=== PATIENT | female | born 1990 | race Two or more races ===

== ENCOUNTER 2024-10-13 18:32 | Inpatient (IN) | payer OTHER ==
[~2024-10-13] VITALS: Ht 154.9 cm; Wt 66.2 kg
[2024-10-13] MEDS ORDERED: PRENATAL + DHA1 EAC1 PO (19:00)
[2024-10-13 20:49] LABS: HEMATOCRIT 37.3 % (36.0-45.00); HEMOGLOBIN 12.4 g/dL (12.0-15.00); MEAN CELL VOLUME 84.5 fL (80.00-100.00); MEAN CORPUSCULAR HEMOGLOBIN 28.1 pg (27.00-32.0); MEAN CORPUSCULAR HGB CONC 33.3 g/dl (32.0-36.0); PLATELET COUNT 271 K/uL (150-450); RED BLOOD COUNT 4.42 M/uL (4.00-6.00); RED CELL DISTRIBUTION WIDTH 14.3 % (11.5-14.5)
[2024-10-13 21:41] LABS: ALBUMIN 3.7 gm/dL (3.4-5.0); BILIRUBIN TOTAL 0.3 mg/dL (0.3-1.2); CALCIUM 8.7 mg/dL (8.5-10.1); CREATININE SERUM 0.55 mg/dL (0.55-1.02); GFR 125.06; GLOBULINA 3.7 G/DL (2.4-3.5); POTASSIUM 3.84 mEq/L (3.5-5.1); TOTAL PROTEIN 7.4 gm/dL (6.4-8.2)
[2024-10-13] MEDS ORDERED: KETOROLAC TROMETHAMINE 30 MG VIAL IV ONE (22:45)
[2024-10-13] MEDS ORDERED: CIPROFLOXACIN IN 5 % DEXTROSE 400 MG/200 ML PIGGYBAG IV ONE ×2 (22:45→23:54)
[2024-10-13] MEDS ORDERED: 0.9 % SODIUM CHLORIDE 1,000 ML IV SCH (22:45)
[2024-10-13] MEDS ORDERED: KETOROLAC TROMETHAMINE 30 MG VIAL ONE (23:54)
[2024-10-14] VITALS: BP 123/79; O2SAT 99
[2024-10-14 01:03] LABS: COVID-19 AG NEGATIVE (NEGATIVE)
[2024-10-14 01:04] LABS: PARTIAL THROMBOPLASTIN TIME 28.7 SECONDS (22.0-34.0); PROTHROMBIN TIME 10.9 SECONDS (9.0-11.5)
[2024-10-14 03:08] VITALS: BP 114/65
[2024-10-14 04:02] LABS: PH,URINE 5.5 (5.0-8.0); URINE APPEARANCE Clear; URINE BILIRRUBIN Negative (NEGATIVE); URINE BLOOD Large; URINE COLOR Yellow; URINE GLUCOSE Negative (NEGATIVE); URINE KETONE Trace (NEGATIVE); URINE LEUKOCYTE Trace; URINE NITRATE Negative; URINE PROTEIN Trace (NEGATIVE)
[2024-10-14 04:06] LABS: URINE BACTERIA 2855.5 uL (0.0-1933); URINE EPITHELIAL CELLS 17.8 uL (0.0-38.8); URINE RBC 1369.5 uL (0.0-20.8); URINE WBC 17.5 uL (0.0-23.2)
[2024-10-14 04:26] LABS: URINE CAST 0.14 uL (0.0-1.40)
[2024-10-14] MEDS ORDERED: CLINDAMYCIN PHOSPHATE 150 MG/ML (900mg) IV SCH (06:15)
[2024-10-14] MEDS ORDERED: CLINDAMYCIN PHOSPHATE 150 MG/ML (900mg) ONE (07:50)
[2024-10-14 08:58] VITALS: BP 104/65
[2024-10-14] MEDS ORDERED: OXYTOCIN 10 UNITS/ML VIAL ONE (11:35)
[2024-10-14] MEDS ORDERED: OxyCODONE HCL/APAP UD (PERCOCET) PO PRN (12:00)
[2024-10-14] MEDS ORDERED: ACETAMINOPHEN 500 MG GEL..CAP PO PRN (12:00)
[2024-10-14 13:40] VITALS: BP 100/66
[2024-10-14 15:28] VITALS: O2SAT 100
[2024-10-14 15:39] VITALS: BP 96/63
[2024-10-14] MEDS ORDERED: OxyCODONE HCL 5 MG TABLET (ROXICODONE) PO PRN (19:45)
[2024-10-15] VITALS: BP 90/60
[2024-10-15 02:05] LABS: HEMATOCRIT 33.1 % (36.0-45.00); HEMOGLOBIN 11.1 g/dL (12.0-15.00); MEAN CELL VOLUME 85.3 fL (80.00-100.00); MEAN CORPUSCULAR HEMOGLOBIN 28.7 pg (27.00-32.0); MEAN CORPUSCULAR HGB CONC 33.7 g/dl (32.0-36.0); PLATELET COUNT 256 K/uL (150-450); RED BLOOD COUNT 3.88 M/uL (4.00-6.00); RED CELL DISTRIBUTION WIDTH 13.7 % (11.5-14.5)
[2024-10-15 07:44] VITALS: BP 94/68
[2024-10-15] MEDS ORDERED: IBUPROFEN800 MG PO (08:41)
== END 2024-10-15 10:02 | disposition home or self-care (01) | DRG 770 ==
LOC: ER 18:32 → OB/GYN 10-14 01:53
PROVIDERS: General Practice; ADMIT Specialist; ATTEND Specialist
PROC: 10D17ZZ Extraction of Products of Conception, Retained, Via Natural or Artificial Opening (ICD-10-PCS; principal; 2024-10-14 09:45)
DX: O02.1 Missed abortion (principal); Z3A.01 Less than 8 weeks gestation of pregnancy

== ENCOUNTER → 2024-10-16 | Emergency (ER) | payer OTHER ==
[~2024-10-16] VITALS: Ht 154.9 cm; Wt 66.2 kg
[~2024-10-16] MED LIST: BUTALB/ACETAMINOPHEN/CAFFEINE 1 TAB TABLET PO ONE; IBUPROFEN800 MG PO; PRENATAL + DHA1 EAC1 PO; RINGERS SOLUTION,LACTATED 1,000 ML IV STA
== END | disposition home or self-care (01) ==
LOC: ER 14:59
DX: T41.3X5A Adverse effect of local anesthetics, initial encounter (principal); Y92.89 Other specified places as the place of occurrence of the external cause; Z88.8 Allergy status to other drugs, medicaments and biological substances

== ENCOUNTER 2024-10-19 12:55 | Emergency (ER) | payer OTHER ==
[~2024-10-19] VITALS: Ht 154.9 cm; Wt 66.2 kg
[~2024-10-19 12:55] MED LIST changes: -BUTALB/ACETAMINOPHEN/CAFFEINE 1 TAB TABLET PO ONE; -RINGERS SOLUTION,LACTATED 1,000 ML IV STA
[2024-10-19] MEDS ORDERED: KETOROLAC TROMETHAMINE 60 MG VIAL IM STA (14:45)
[2024-10-19] MEDS ORDERED: 0.9 % SODIUM CHLORIDE 1,000 ML IV STA (14:47)
[2024-10-19] MEDS ORDERED: KETOROLAC TROMETHAMINE 60 MG VIAL IM ONE (15:39)
[2024-10-19 16:07] LABS: HEMATOCRIT 37.2 % (36.0-45.00); HEMOGLOBIN 12.6 g/dL (12.0-15.00); MEAN CELL VOLUME 84.4 fL (80.00-100.00); MEAN CORPUSCULAR HEMOGLOBIN 28.5 pg (27.00-32.0); MEAN CORPUSCULAR HGB CONC 33.8 g/dl (32.0-36.0); PLATELET COUNT 301 K/uL (150-450); RED CELL DISTRIBUTION WIDTH 14.2 % (11.5-14.5)
== END 2024-10-19 18:59 | disposition home or self-care (01) ==
LOC: ER 12:56
PROVIDERS: General Practice
DX: T88.59XA Other complications of anesthesia, initial encounter (principal); G97.1 Other reaction to spinal and lumbar puncture; Z88.8 Allergy status to other drugs, medicaments and biological substances
CPT/HCPCS: 36415; 96365; 96366; 96372; 99282; J1885; J7030